=== PATIENT | female | born 1985 | race African-American/Black ===

== ENCOUNTER 2017-03-04 18:19 | Inpatient (IN) | payer OTHER ==
[~2017-03-04] VITALS: Ht 167.6 cm; Wt 74.1 kg
[2017-03-04 18:45] VITALS: BP 135/80
[2017-03-04] MEDS ORDERED: PRENATAL TABLE1 EAC3 PO (19:01)
[2017-03-04 19:54] VITALS: BP 125/72
[2017-03-04 20:07] LABS: EOSINOPHIL (%) 0.8 % (0-5); EOSINOPHIL COUNT 0.1 K/uL (0-0.3); HEMATOCRIT 30.4 % (36.0-46.0); IMMATURE GRANULOCYTE (%) 0.4 % (0.0-0.7); INSTRUMENT ABS NEUTROPHIL CT 7.3 K/uL; MCH 33.4 PG (29.0-34.0); MCHC 35.2 G/DL (30.0-36.0); MEAN PLAT.VOLUME 11.1 uM^3 (9.5-12.4); MONOCYTE (%) 9.5 % (3-12); NEUTROPHIL (%) 70.4 % (45-76); NEUTROPHIL COUNT 7.3 K/uL (1.8-6.4); PLATELET COUNT 207 K/uL (156-360); RBC DIS.WIDTH-CV 13.5 % (11.8-14.6); RBC DIS.WIDTH-SD 47.3 % (39-53); WHITE BLOOD COUNT 10.4 K/uL (4.1-10.2)
[2017-03-04 21:02] LABS: AMPHETAMINES QUANT VALUE 0 NG/ML; BARBITUATES QUANT VALUE 0 NG/ML; BENZODIAZEPINES QUANT VALUE 0 NG/ML; BENZODIAZEPINES, URINE SCREEN Negative (200 ng/mL); OPIATES QUANTITATIVE VALUE 0 NG/ML; PHENCYCLIDINE QUANT VALUE 0 NG/ML
[2017-03-04] MEDS ORDERED: MOTRIN800 MG PO (23:34)
[2017-03-04] MEDS ORDERED: PERCOCET 5/31 TABLET PO (23:34)
[2017-03-05] VITALS (8 sets, daily range): BP systolic 107–141; BP diastolic 65–84
[2017-03-05 08:32] LABS: EOSINOPHIL (%) 0.1 % (0-5); HEMATOCRIT 29.8 % (36.0-46.0); IMMATURE GRANULOCYTE (%) 0.7 % (0.0-0.7); IMMATURE GRANULOCYTE COUNT 0.1 K/uL; INSTRUMENT ABS NEUTROPHIL CT 15.7 K/uL; LYMPHOCYTE COUNT 1.6 K/uL (1.0-2.8); MCH 32.3 PG (29.0-34.0); MCHC 33.6 G/DL (30.0-36.0); MCV 96.1 FL (83-99); MONOCYTE (%) 6.7 % (3-12); MONOCYTE COUNT 1.3 K/uL (0-0.8); NEUTROPHIL (%) 83.9 % (45-76); NEUTROPHIL COUNT 15.7 K/uL (1.8-6.4); PLATELET COUNT 203 K/uL (156-360); RBC DIS.WIDTH-CV 13.4 % (11.8-14.6); RBC DIS.WIDTH-SD 47.6 % (39-53); WHITE BLOOD COUNT 18.8 K/uL (4.1-10.2)
[2017-03-06 03:00] VITALS: BP 123/72
[2017-03-06 07:40] VITALS: BP 117/71
[2017-03-06 11:20] VITALS: BP 125/74
[2017-03-06 14:50] VITALS: BP 138/84
[2017-03-06 22:24] VITALS: BP 152/80
[2017-03-07 07:05] VITALS: BP 157/93
[2017-03-07] MEDS ORDERED: FERROUS SULFAT325 MG PO (09:18)
[2017-03-07 15:29] VITALS: BP 159/83
[2017-03-07 22:21] VITALS: BP 129/77
[2017-03-08] MEDS ORDERED: MYLICON,MYLANTA80 MG PO (07:44)
[2017-03-08 08:30] VITALS: BP 161/81
== END 2017-03-08 11:30 | disposition home or self-care (01) | DRG 765 ==
LOC: LDRP-OP → 2WEST 18:20 → LDRP-OP 04-19 13:14
PROVIDERS: Obstetrics & Gynecology
PROC: 10D00Z1 Extraction of Products of Conception, Low, Open Approach (ICD-10-PCS; principal; 2017-03-04)
DX: O34.211 Maternal care for low transverse scar from previous cesarean delivery (principal); O67.9 Intrapartum hemorrhage, unspecified; O69.1XX0 Labor and delivery complicated by cord around neck, with compression, not applicable or unspecified; O99.02 Anemia complicating childbirth; D62 Acute posthemorrhagic anemia; Z3A.38 38 weeks gestation of pregnancy; Z37.0 Single live birth; O99.334 Smoking (tobacco) complicating childbirth; F17.200 Nicotine dependence, unspecified, uncomplicated; O99.324 Drug use complicating childbirth; F12.10 Cannabis abuse, uncomplicated; G89.18 Other acute postprocedural pain; Z91.040 Latex allergy status
CPT/HCPCS: 80306 90; 85025; 86850; 86900; 86901; 90686; J0690; J1170; J1200; J2270; J2274; J2405; J3010; J7120